=== PATIENT | male | born 1990 | race Caucasian/White ===

== ENCOUNTER 2024-07-02 03:17 | Emergency (ER) | payer SELFPAY ==
[2024-07-02] MEDS ORDERED: Sodium Chloride 0.9% 10 ML Syringe FLUSH PRN (03:46)
[2024-07-02] MEDS: Sodium Chloride 0.9% 1,000 ML IV ONE (03:57)
[2024-07-02 04:00] LABS: BASOPHILS PERCENT AUTO 0.2 % (0.0-1.0); EOSINOPHILS PERCENT AUTO 0.7 % (1.0-3.0); HEMATOCRIT 46.8 % (40.0-54.0); HEMOGLOBIN 16.1 g/dL (14.0-18.0); LYMPHOCYTES PERCENT AUTO 33.6 % (20.5-50.1); MEAN CORPUSCULAR HEMOGLOBIN 30.6 pg (27.0-34.0); MEAN CORPUSCULAR HGB CONC 34.4 g/dL (33.0-35.0); MEAN CORPUSCULAR VOLUME 88.8 fL (80-100); MONOCYTES PERCENT AUTO 6.4 % (2-8); NEUTROPHILS PERCENT AUTO 59.1 % (42.2-75.2); PLATELET COUNT,PLT 106 10^3/uL (150-450); RED BLOOD CELL COUNT 5.27 10^6/uL (4.6-6.2); WHITE BLOOD CELL COUNT,WBC 4.2 10^3/uL (5.0-10.0)
[2024-07-02 04:21] LABS: INR 1.1 (0.9-1.2); PTT,PARTIAL THROMBOPLSTIN TIME 21.3 SEC (22.0-34.0)
[2024-07-02 04:24] LABS: A/G RATIO 1.2; ANION GAP 14.8 mEq/L (7-13); BILIRUBIN TOTAL 0.5 mg/dL (0.2-1.0); BUN/CREATININE RATIO 11.3 (No establ ref range); CALCIUM 8.1 mg/dL (8.5-10.1); CREATININE 1.15 mg/dL (0.70-1.30); EST CRCL DRUG DOSING (CG) 111.12 mL/min; POTASSIUM,K 3.8 mmol/L (3.5-5.1); PROTEIN TOTAL,TP 7.4 g/dL (6.4-8.2)
[2024-07-02] MEDS: Lidocaine 1% with EPINEPHrine 1:100,000 20 ML MDV INJECT ONE (05:15)
[2024-07-02] MEDS: Bupivacaine 0.25% 10 ML SDV INJECT ONE (05:15)
[2024-07-02] MEDS ORDERED: Naloxone 2 MG/2 ML Syringe IVPUSH PRN (05:51)
[2024-07-02] MEDS: Bacitracin Oint 1 GM U/D Packet TOP ONE (05:54)
[2024-07-02] MEDS: Morphine 2 MG/ML SYRINGE IVPUSH ONE (06:00)
[2024-07-02] MEDS: Fluorescein 1 MG Ophth Strip EYEBOTH ONE (06:01)
[2024-07-02] MEDS: Proparacaine 0.5% Ophth Soln 15 ML Bottle EYEBOTH ONE (06:01)
== END 2024-07-02 06:26 | disposition home or self-care (01) ==
LOC: DL.ED 03:17
DX: S06.0X1A Concussion with loss of consciousness of 30 minutes or less, initial encounter (principal); S01.111A Laceration without foreign body of right eyelid and periocular area, initial encounter; K03.81 Cracked tooth; W22.8XXA Striking against or struck by other objects, initial encounter
CPT/HCPCS: 12013; 36415; 70450; 70486; 71045; 72125; 80053; 83735; 85025; 85610; 85730; 96361; 96374; 99284; A9270; J0665; J2270; J7030; J3490